=== PATIENT | female | born 1985 | race Caucasian/White ===

== ENCOUNTER 2016-03-06 21:13 | Emergency (ER) | payer BC ==
[2016-03-06] MEDS ORDERED: NS 0.9% 1000 ML* 1,000 ML IV ONE (21:31)
[2016-03-06 21:47] LABS: Hematocrit 38 % (35-47); Hemoglobin 12.8 g/dl (12.0-16.0); Mean Corpuscular HGB Conc 34 g/dl (31-36); Mean Corpuscular Hemoglobin 28 pg (27-31); Mean Corpuscular Volume 85 fL (80-97); Mean Platelet Volume 10 um3 (7.4-10.4); Red Cell Distribution Width 14 % (10.5-15); White Blood Count 13.1 10^3/ul (3.5-10.8)
[2016-03-06 22:00] LABS: ALT 12 U/L (7-52); AST 14 U/L (13-39); Albumin 3.6 g/dL (3.2-5.2); Alkaline Phosphatase 39 U/L (34-104); Anion Gap 7 mmol/L (2-11); Blood Urea Nitrogen 13 mg/dL (6-24); CO2 Carbon Dioxide 25 mmol/L (22-32); Calcium 9.4 mg/dL (8.6-10.3); Chloride 104 mmol/L (101-111); EGFR African American 143.5 (>60); EGFR Non-African American 111.6 (>60); Globulin 3.1 g/dL (2-4); Glucose 110 mg/dL (70-100); Potassium 3.9 mmol/L (3.5-5.0); Sodium 136 mmol/L (133-145); Total Protein 6.7 g/dL (6.4-8.9)
[2016-03-06 22:03] LABS: Urine Bacteria Absent (Absent); Urine Bilirubin Negative (Negative); Urine Glucose 1+(50 mg/dL) (Negative); Urine Nitrite Negative (Negative)
[2016-03-07 01:33] VITALS: BP 111/71
--- NOTE | 2016-03-07 06:55 | RAD ---
INDICATION: Early with cramping COMPARISON: None TECHNIQUE: Real-time transabdominal imaging was performed for evaluation. This is not a anatomic study due to the early age of the gestation. FINDINGS: There is a diamniotic twin gestation. It cannot be determined whether this is monochorionic or dichorionic. Twin A is the presenting fetus and is in the lower uterus. The crown-rump length corresponds to an 11 week 3 day gestation. heart rate is 176 beats for minute. Twin B is high in the uterus with a crown-rump length corresponding to an 11 week 1 day gestation. The heart rate is 170 beats for minute. There is a large complex collection anterior to the left of the gestational sac consistent with subchorionic hemorrhage. The subchorionic hemorrhage extends from the fundus and lower uterine segment. The measurement is approximately 8 x 6 x 3 cm. IMPRESSION: EARLY TWIN GESTATION AT BETWEEN 11 WEEKS 1 DAY 11 WEEKS 3 DAYS WITH CONFIRMATION OF CARDIAC ACTIVITY IN EACH TWIN. THERE IS A LARGE PERIGESTATIONAL HEMORRHAGE. SUGGEST CLOSE FOLLOW-UP.
--- NOTE | 2016-03-07 12:19 | ED ---
Trino Song Billy, scribed for Tom Hernandez MD on 03/06/16 at 2142 . GI/ HPI - HPI Summary HPI Summary: Patient is a 30 year-old female coming to [facility] presenting with intermittent bright red vaginal bleeding starting 90 minutes ago. The patient was seated, at rest. She also reports suprapubic abdominal cramping, pain severity 3/10. She is 11 weeks with twins; A1. She reports an early miscarriage 1.5 years ago as well as a history of infertility. She has been receiving fertility treatments at [facility] in [place] via IVF, and she states that her weekly ultrasounds have been normal. She denies any other significant history. - History of Current Complaint Chief Complaint: EDVaginalBleeding Time Seen by Provider: 03/06/16 21:33 Stated Complaint: 11 WKS TWINS/BLEEDING Hx Obtained From: Patient Onset/Duration: Started Minutes Ago, Still Present Timing: Intermittent Severity: Moderate Current Severity: Moderate Vaginal Bleeding Description: Bright Red Pain Intensity: 3 Location of Pain: Suprapubic Associated Signs and Symptoms: Positive: Abdominal Pain Additional Signs & Symptoms: Positive: Vaginal Bleeding - Allergy/Home Medications Allergies/Adverse Reactions: Allergies Allergy/AdvReac Type Severity Reaction Status Date / Time No Known Allergies Allergy Verified 03/06/16 21:27 Home Medications: Home Medications Levothyroxine TAB* [Synthroid TAB*] 50 mcg PO DAILY 03/06/16 [History Confirmed 03/06/16] Progesterone SUPP (NF) [Endometrin SUPP (NF)] 100 mg VAGINAL BID 03/06/16 [ History Confirmed 03/06/16] PMH/Surg Hx/FS Hx/Imm Hx Endocrine/Hematology History: Denies: Hx Diabetes Cardiovascular History: Denies: Hx Hypertension, Hx Myocardial Infarction - Immunization History Date of Tetanus Vaccine: unk Date of Influenza Vaccine: none Infectious Disease History: No Infectious Disease History: Denies: Traveled Outside the [place] in Last 30 Days - Family History Known Family History: Negative: Cardiac Disease, Hypertension, Diabetes - Social History Alcohol Use: None Substance Use Type: Reports: None Smoking Status (MU): Never Smoked Tobacco Review of Systems Negative: Fever Positive: Abdominal Pain - cramping Positive: other - vaginal bleeding All Other Systems Reviewed And Are Negative: Yes Physical Exam - Summary Physical Exam Summary: VITAL SIGNS: Reviewed. GENERAL: Patient is a well developed and nourished female who is lying comfortable in the stretcher. Patient is not in any acute respiratory distress. HEAD AND FACE: Normocephalic and atraumatic. EYES: PERRLA, EOMI x 2, No injected conjunctiva. EARS: Hearing grossly intact. Ear canals and tympanic membranes are WNL. MOUTH: Oropharynx within normal limits. NECK: Supple, trachea is midline, no adenopathy, no JVD. CHEST: Symmetric, no tenderness at palpation LUNGS: Clear to auscultation bilaterally. No wheezing or crackles. CVS: RRR,, S1 and S2 present, no murmurs or gallops appreciated. ABDOMEN: Soft, non-tender. No signs of distention. Positive bowel sounds. No rebound no guarding, and no masses palpated. No abdominal bruit or pulsations. EXTREMITIES: FROM in all major joints, no edema, no cyanosis or clubbing. NEURO: Alert and oriented x 3. No acute neurological deficits. Speech is normal. 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 External genitalia: within normal limits. No rashes, lesions or ecchymosis. Speculum exam: vaginal valladares with no lesions, masses, or rashes. Small amount of blood in the vault. Cervix normal. No CMTs. No adnexal masses. Triage Information Reviewed: Yes Vital Signs On Initial Exam: Initial Vitals Temp Pulse Resp BP Pulse Ox 98.7 F 117 16 140/83 100 03/06/16 21:16 03/06/16 21:16 03/06/16 21:16 03/06/16 21:16 03/06/16 21:16 Vital Signs Reviewed: Yes - [place] Coma Scale Coma Scale Total: 15 Diagnostics - Vital Signs Vital Signs Temp Pulse Resp BP Pulse Ox 03/06/16 21:16 98.7 F 117 16 140/83 100 - Laboratory Lab Results: Lab Results 03/06/16 Range/Units 21:35 INR (Anticoag Therapy) 0.93 (0.89-1.11) APTT 26.5 (26.0-36.3) seconds Result Diagrams: 03/06/16 21:35 03/06/16 21:35 Lab Statement: Any lab studies that have been ordered have been reviewed, and results considered in the medical decision making process. - Ultrasound No standard instances Ultrasound Interpretation Completed By: Radiologist - ULTRASOUND: Large twin intrauterine gestation. Large subchorionic hemorrhage at margins of both gestational sacs. Re-Evaluation - Re-Evaluation First Eval Re-Evaluation Time: 23:42 Comment: Discussed plan to wait for official US report as well as Rh lab results, and that final disposition will be pending these results. GIGU Course/Dx - Course Assessment/Plan: Patient is a 30 year-old female coming to [facility] presenting with intermittent bright red vaginal bleeding starting 90 minutes ago. The patient was seated, at rest. She also reports suprapubic abdominal cramping, pain severity 3/10. She is 11 weeks with twins; A1. She reports an early miscarriage 1.5 years ago as well as a history of infertility. She has been receiving fertility treatments at [facility] in [place] via IVF , and she states that her weekly ultrasounds have been normal. She denies any other significant history. Bloodwork WNL except for WBC of 13.1, bHCG is [id number]. Pelvic exam shows that she has slight amount of blood in the vaginal vault and with no significant abdominal cramping. At this time, we are waiting for the lab result of the Rh blood type. Pelvic U/S results as above. Positive large subchorionic bleed. Fetus are viable and positive HR. I discussed the case with Dr. Smith who recommends for the patient to be at bed rest and if and since there are positive heart tones, the patient should be discharged home to follow up with RESEARCH AND DEVELOPMENT CHEMIST on Tuesday in 2 days. Also, if Rh is pending. At this point, we are awaiting the Rh lab results, so the patient will be signed out to Dr. Berrios for further disposition. She is comfortable in the ED, hemodynamically stable, A&Ox3. - Diagnoses Differential Diagnoses - Female: Incomplete , , Pelvic Inflammatory Disease Provider Diagnoses: Vaginal bleeding, Threatened miscarriage - Physician Notifications Discussed Care Of Patient With: Dr. Smith (RESEARCH AND DEVELOPMENT CHEMIST) @ [phone]. Dr. Velasquez ( Imaging blood bank order control clerk) @ 2998: US findings reviewed. Discharge - Discharge Plan Condition: Stable Disposition: HOME Discharge Disposition Comment: Signed out to Dr. Berrios pending Rh lab results. Patient Education Materials: Threatened Miscarriage (ED) The documentation as recorded by the Trino byrd Billy accurately reflects the service I personally performed and the decisions made by me, Tom Hernandez MD.
--- NOTE | 2016-05-15 09:52 | ED ---
I, Jarek Wills, scribed for Faviola Berrios MD on 03/07/16 at 0123 . Progress - Progress Note Progress Note: signout pt from Dr. Hernandez. Awaiting for ABO/RH results. pt discharged home in stable condition - Results/Orders Results/Orders: Bloodtype: B positive Course/Dx - Diagnoses Provider Diagnoses: Vaginal bleeding, Threatened miscarriage The documentation as recorded by the Johann byrd Benjamin accurately reflects the service I personally performed and the decisions made by me, Faviola Berrios MD.
== END 2016-03-07 01:31 | disposition home or self-care (01) ==
LOC: ED 21:13
DX: O20.0 Threatened abortion (principal); O09.01 Supervision of pregnancy with history of infertility, first trimester; O30.001 Twin pregnancy, unspecified number of placenta and unspecified number of amniotic sacs, first trimester; Z3A.11 11 weeks gestation of pregnancy
CPT/HCPCS: 36415; 76801; 80053; 81003; 81015; 83605; 84702; 85025; 85610; 85730; 86900; 86901; 96360; 99282

== ENCOUNTER 2016-08-18 10:06 | Inpatient (IN) | payer BC, OTHER ==
[2016-08-18] MEDS ORDERED: ceFOXitin 2 GM IVPREMIX* 2 GM/50 ML BAG IVPB ONE (10:13)
[2016-08-18] MEDS ORDERED: Magnesium Sulfate OB PREMIX* 40 GM/1,000 ML BAG ONE (10:45)
[2016-08-18] MEDS ORDERED: Magnesium Sulf 4 GM/100 ML IV* 4,000 MG/100 ML BAG IVPB ONE (10:50)
[2016-08-18 11:02] LABS: Hematocrit 39 % (35-47); Hemoglobin 12.5 g/dl (12.0-16.0); Mean Corpuscular HGB Conc 32 g/dl (31-36); Mean Corpuscular Hemoglobin 26 pg (27-31); Mean Corpuscular Volume 80 fL (80-97); Mean Platelet Volume 11 um3 (7.4-10.4); Red Blood Count 4.85 10^6/ul (4.0-5.4); Red Cell Distribution Width 15 % (10.5-15); White Blood Count 12.6 10^3/ul (3.5-10.8)
[2016-08-18 11:04] LABS: Add Diff/Slide Review? Slide Review Added; Comments Flag Yes
[2016-08-18 11:16] LABS: Albumin 3.1 g/dL (3.2-5.2); BUN/Creatinine Ratio 14.7 (8-20); Calcium 8.7 mg/dL (8.6-10.3); EGFR African American 80.3 (>60); EGFR Non-African American 62.4 (>60); Globulin 3.3 g/dL (2-4); Potassium 4.2 mmol/L (3.5-5.0); Total Bilirubin 0.6 mg/dL (0.2-1.0); Total Protein 6.4 g/dL (6.4-8.9)
[2016-08-18] MEDS ORDERED: Sodium Citrate/Citric Acid* 15 ML UDC ONE (11:21)
[2016-08-18] MEDS ORDERED: Morphine PF AMP (0.5MG/ML)* 5 MG/10 ML AMP ONE (11:29)
[2016-08-18] MEDS ORDERED: Phenylephrine IV* 40 MCG/ML 10 ML SYRINGE ONE (11:30)
[2016-08-18 11:37] LABS: Platelet Morphology Large
[2016-08-18 11:42] LABS: Schistocytes ABSENT
[2016-08-18 12:02] LABS: Fibrinogen 500 mg/dL (110.8-404.3)
[2016-08-18] MEDS ORDERED: OXYTOCIN* 10 UNITS/ML 1 ML VIAL ONE ×2 (12:54→12:59)
[2016-08-18] MEDS ORDERED: EPHEDrine (Pressors)* 50 MG/ML VIAL ONE (12:59)
[2016-08-18] MEDS ORDERED: fentaNYL* 50 MCG/ML 2 ML VIAL (100 MCG VIAL) IV PRN (13:42)
[2016-08-18] MEDS ORDERED: DiMENhydriNATE IV* 50 MG/ML VIAL IV PUSH PRN (13:42)
[2016-08-18] MEDS ORDERED: Ketorolac INJ* 30 MG/ML 1 ML VIAL IV PRN (13:42)
[2016-08-18] MEDS ORDERED: Ondansetron INJ* 2 MG/ML VIAL ONE (13:44)
[2016-08-18] MEDS ORDERED: Naloxone* 0.4 MG/ML 1 ML VIAL IV PRN (13:47)
[2016-08-18] MEDS ORDERED: Naloxone* 2 MG in NS 0.9% 250 ML* 250 ML IV PRN (13:47)
[2016-08-18] MEDS ORDERED: Ondansetron INJ* 2 MG/ML VIAL IV PRN (13:47)
[2016-08-18] MEDS ORDERED: diPHENhydraMINE IV* 50 MG/ML 1 ml VIAL (BENADRYL) IV PRN (13:47)
[2016-08-18] MEDS ORDERED: Dibucaine 1% 28.35 GM TUBE PR PRN (13:50)
[2016-08-18] MEDS ORDERED: Glycerin ADULT SUPP PR PRN (13:50)
[2016-08-18] MEDS ORDERED: Measles, Mumps,Rubella VACC* 0.5 ML/VIAL SUBCUT ONE (13:50)
[2016-08-18] MEDS ORDERED: Witch Hazel PAD* JAR TOPICAL PRN (13:50)
[2016-08-18] MEDS ORDERED: Acetaminophen TAB* 325 MG PO PRN (13:50)
[2016-08-18] MEDS ORDERED: Oxytocin in LR* 20 UNITS/1,000 ML BAG IVPB SCH (14:00)
[2016-08-18] MEDS: Ketorolac INJ* 30 MG/ML 1 ML VIAL IV PRN ×2 (14:19→20:27)
[2016-08-18] MEDS: oxyCODONE/Acetamin 5/325 MG* TAB PO PRN (15:59)
[2016-08-18] MEDS: Simethicone CHEW TAB* 80 MG PO SCH ×2 (17:36→23:24)
[2016-08-18 20:27] LABS: Hematocrit 35 % (35-47); Hemoglobin 11.3 g/dl (12.0-16.0); Mean Corpuscular HGB Conc 32 g/dl (31-36); Mean Corpuscular Hemoglobin 26 pg (27-31); Mean Corpuscular Volume 81 fL (80-97); Mean Platelet Volume 12 um3 (7.4-10.4); Red Blood Count 4.38 10^6/ul (4.0-5.4); Red Cell Distribution Width 15 % (10.5-15); White Blood Count 18.6 10^3/ul (3.5-10.8)
[2016-08-18 20:28] LABS: Comments Flag Yes
[2016-08-18] MEDS: Docusate CAP* 100 MG PO SCH ×2 (20:28→23:24)
[2016-08-18] MEDS: Magnesium Sulfate OB PREMIX* 40 GM/1,000 ML BAG IVPB SCH (20:30)
[2016-08-19] MEDS: Ketorolac INJ* 30 MG/ML 1 ML VIAL IV PRN (02:20)
[2016-08-19] MEDS: Magnesium Sulfate OB PREMIX* 40 GM/1,000 ML BAG IVPB SCH (05:21)
[2016-08-19] MEDS: Levothyroxine TAB* 25 MCG TAB PO SCH (06:17)
[2016-08-19 07:51] LABS: Hematocrit 30 % (35-47); Hemoglobin 9.6 g/dl (12.0-16.0); Mean Corpuscular HGB Conc 32 g/dl (31-36); Mean Corpuscular Hemoglobin 26 pg (27-31); Mean Corpuscular Volume 80 fL (80-97); Mean Platelet Volume 12 um3 (7.4-10.4); Red Blood Count 3.69 10^6/ul (4.0-5.4); Red Cell Distribution Width 15 % (10.5-15); White Blood Count 17.8 10^3/ul (3.5-10.8)
[2016-08-19 07:53] LABS: Comments Flag Yes
[2016-08-19 07:59] LABS: Albumin 2.3 g/dL (3.2-5.2); Direct Bilirubin 0.1 mg/dL (0.03-0.18); Globulin 2.6 g/dL (2-4); Indirect Bilirubin 0.2 mg/dL (0.3-1.0); Total Bilirubin 0.3 mg/dL (0.2-1.0); Total Protein 4.9 g/dL (6.4-8.9)
[2016-08-19 09:49] LABS: Magnesium 7.9 mg/dL (1.9-2.7)
[2016-08-19] MEDS: Simethicone CHEW TAB* 80 MG PO SCH ×4 (10:29→20:10)
[2016-08-19] MEDS: oxyCODONE/Acetamin 5/325 MG* TAB PO PRN ×4 (10:31→22:36)
[2016-08-19] MEDS: Ferrous Gluconate TAB* 324 MG TAB PO SCH ×2 (10:32→21:34)
[2016-08-19] MEDS: Docusate CAP* 100 MG PO SCH ×3 (10:32→20:09)
--- NOTE | 2016-08-19 17:22 | OP ---
DATE OF OPERATION: 08/18/16 - ROOM #[id number] DATE OF : 81 SURGEON: January Khan MD. FINANCIAL LEGAL ASSISTANT: Jason Duarte MD SECOND FINANCIAL LEGAL ASSISTANT: Tasha Pereyra CNM. Student, Libby De La Paz. ANESTHESIOLOGIST: Dr. Griffin. ANESTHESIA: Spinal anesthesia. PRE-OP DIAGNOSIS: Severe preeclampsia, 34 and 5/7 weeks, twin gestation, breech twin A, breech twin B. POST-OP DIAGNOSIS: Severe preeclampsia, 34 and 5/7 weeks, twin gestation, breech twin A, breech twin B, delivered. PROCEDURE PERFORMED: Primary low transverse section. ESTIMATED BLOOD LOSS: 600 cc. URINE OUTPUT: 120 cc of concentrated yellow urine. FLUIDS: 2400 cc of crystalloid. FINDINGS: Revealed twin A male , left sacrum, anterior, incomplete breech. No nuchal cord. No meconium. Three vessel cord. Fused placenta with twin B. Twin B was footling breech, female infant. The boy was 5 pounds. The girl twin B was 4 pounds 1 ounce. Apgars were 8 at 1 minute and 9 at 5 minutes. Both had the same Apgars. No nuchal cord and no meconium. Three- vessel cord. Placenta manually extracted intact, three-vessel cord x2. Uterine cavity explored without any evidence of defects. Normal-appearing fallopian tube on the right and left without adhesions. There was evidence of hemosiderin deposits on the IP ligament anteriorly and also hemosiderin deposits consistent with old endometriosis both on the right and left ovary. COMPLICATIONS: None apparent. DISPOSITION: Stable to recovery room. DESCRIPTION OF PROCEDURE: The patient was placed in dorsal lithotomy position after undergoing spinal anesthesia. Anesthesia was tested to appropriate level. The patient was identified with universal protocol for correct procedure , patient, and position. An incision was made after universal protocol with scalpel. This was carried down through to the fascia. Fascia was scored in the midline and extended laterally and superiorly using curved Castellano scissors. The fascia was superiorly using blunt and sharp dissection and also inferiorly. The peritoneum was then entered bluntly and the peritoneal incision was extended bluntly. Bladder blade was inserted. The lower uterine segment was identified and Allis was used to tent up on the lower uterine segment and incision was made in the lower uterine segment and this incision was extended laterally and superiorly with bandage scissors. Copious clear fluid was noted. was found to be incomplete breech, delivered after reduction, right leg was delivered wesley breech, anterior posterior shoulder delivered, head delivered spontaneously. Cord was milked and then cut and clamped and the was handed off to awaiting binder and box builder. The second baby was noted to be footling breech. The right foot was grasped and the baby was delivered wesley breech, anterior posterior shoulder delivered, head delivered spontaneously. Cord was then milked, and then clamped and then cut and handed off to awaiting binder and box builder. Appropriate cord blood was obtained from both twin A and twin B. The placentas were then extracted and noted to be fused, but intact and without evidence of abnormalities. The uterine cavity was explored and noted to be free of any membranes or placental tissue. The hemosiderin deposits were as noted on the left IP ligament anteriorly and left and right ovary. Interestingly both fallopian tubes were without scarring or adhesions. The hysterotomy site was reapproximated in two layers. First layer running 0 Vicryl locked and the second layer running imbricated 0 Vicryl. The uterus was returned intraabdominally. Colic gutter was lavaged. Hemostasis was documented at the hysterotomy site. The peritoneum was then reapproximated using 3-0 Vicryl in a running fashion. Subfascial area was visualized and noted to be hemostatic and the fascia itself was reapproximated using 0 Vicryl x2 in a running fashion. Subcu was lavaged. Hemostasis was assured with Bovie coagulation and the subcutaneous layer was reapproximated using 3-0 Polysorb x3 interrupted. Skin was then reapproximated using 4-0 Monocryl in subcuticular fashion. Mastisol and Steri's were applied. Bandage dressing was used. All sponge, instrument, and blade counts were correct throughout the case. The patient tolerated the procedure well, and went to recovery room in stable condition with magnesium sulfate on board 2 g an hour. [id number]/[facility] #: [id number] [facility]
[2016-08-19] MEDS: Ibuprofen TAB* 600 MG PO PRN (20:09)
[2016-08-20] MEDS: Ibuprofen TAB* 600 MG PO PRN ×4 (02:21→20:00)
[2016-08-20] MEDS: oxyCODONE/Acetamin 5/325 MG* TAB PO PRN ×5 (02:23→22:07)
[2016-08-20 06:37] LABS: Hematocrit 28 % (35-47); Hemoglobin 9.2 g/dl (12.0-16.0); Mean Corpuscular HGB Conc 32 g/dl (31-36); Mean Corpuscular Hemoglobin 26 pg (27-31); Mean Corpuscular Volume 80 fL (80-97); Mean Platelet Volume 11 um3 (7.4-10.4); Red Blood Count 3.54 10^6/ul (4.0-5.4); Red Cell Distribution Width 15 % (10.5-15); White Blood Count 15.5 10^3/ul (3.5-10.8)
[2016-08-20 06:38] LABS: Comments Flag Yes
[2016-08-20 07:03] LABS: ALT 24 U/L (7-52); AST 42 U/L (13-39); Albumin 2.1 g/dL (3.2-5.2); Alkaline Phosphatase 133 U/L (34-104); BUN/Creatinine Ratio 16.1 (8-20); Blood Urea Nitrogen 14 mg/dL (6-24); CO2 Carbon Dioxide 26 mmol/L (22-32); Chloride 106 mmol/L (101-111); EGFR African American 96.4 (>60); Glucose 90 mg/dL (70-100); Potassium 4.6 mmol/L (3.5-5.0); Sodium 132 mmol/L (133-145); Total Protein 4.1 g/dL (6.4-8.9)
[2016-08-20 07:13] LABS: Calcium 6.3 mg/dL (8.6-10.3)
[2016-08-20] MEDS: Levothyroxine TAB* 25 MCG TAB PO SCH (07:48)
[2016-08-20] MEDS: Docusate CAP* 100 MG PO SCH ×3 (07:49→20:01)
[2016-08-20] MEDS: Simethicone CHEW TAB* 80 MG PO SCH ×4 (07:49→20:16)
[2016-08-20] MEDS: Ferrous Gluconate TAB* 324 MG TAB PO SCH ×2 (12:19→20:01)
[2016-08-20] MEDS ORDERED: Lidocaine 1% MPF* 2 ML VIAL ONE (18:57)
[2016-08-21] MEDS: Ibuprofen TAB* 600 MG PO PRN ×3 (04:31→18:05)
[2016-08-21] MEDS: Levothyroxine TAB* 25 MCG TAB PO SCH (06:29)
[2016-08-21] MEDS: oxyCODONE/Acetamin 5/325 MG* TAB PO PRN ×3 (06:29→15:30)
[2016-08-21 08:11] LABS: Hematocrit 30 % (35-47); Hemoglobin 9.8 g/dl (12.0-16.0); Mean Corpuscular HGB Conc 32 g/dl (31-36); Mean Corpuscular Hemoglobin 26 pg (27-31); Mean Corpuscular Volume 80 fL (80-97); Mean Platelet Volume 10 um3 (7.4-10.4); Red Blood Count 3.78 10^6/ul (4.0-5.4); Red Cell Distribution Width 16 % (10.5-15); White Blood Count 13.7 10^3/ul (3.5-10.8)
[2016-08-21 08:27] LABS: Albumin 2.2 g/dL (3.2-5.2); BUN/Creatinine Ratio 14.9 (8-20); Calcium 7.9 mg/dL (8.6-10.3); EGFR African American 96.4 (>60); Globulin 2.6 g/dL (2-4); Potassium 4.9 mmol/L (3.5-5.0); Total Bilirubin 0.3 mg/dL (0.2-1.0); Total Protein 4.8 g/dL (6.4-8.9)
[2016-08-21] MEDS: Ferrous Gluconate TAB* 324 MG TAB PO SCH (10:09)
[2016-08-21] MEDS: Docusate CAP* 100 MG PO SCH ×2 (10:10→14:16)
[2016-08-21] MEDS: Simethicone CHEW TAB* 80 MG PO SCH ×3 (10:10→18:05)
[2016-08-21 15:00] VITALS: BP 146/85
== END 2016-08-21 18:47 | disposition home or self-care (01) | DRG 540 ==
LOC: MCHOBOUT 10:06 → MCHOB 10:28
PROVIDERS: ADMIT Obstetrics & Gynecology; ATTEND Obstetrics & Gynecology
PROC: 4A1HX4Z Monitoring of Products of Conception, Cardiac Electrical Activity, External Approach (ICD-10-PCS; 2016-08-18)
PROC: 10D00Z1 Extraction of Products of Conception, Low, Open Approach (ICD-10-PCS; principal; 2016-08-18 12:06)
DX: O14.14 Severe pre-eclampsia complicating childbirth (principal); O30.043 Twin pregnancy, dichorionic/diamniotic, third trimester; Z3A.34 34 weeks gestation of pregnancy; Z37.2 Twins, both liveborn; O32.8XX1 Maternal care for other malpresentation of fetus, fetus 1; O32.8XX2 Maternal care for other malpresentation of fetus, fetus 2; O99.284 Endocrine, nutritional and metabolic diseases complicating childbirth; E03.9 Hypothyroidism, unspecified; O99.824 Streptococcus B carrier state complicating childbirth; O75.89 Other specified complications of labor and delivery; N80.1 Endometriosis of ovary; N80.2 Endometriosis of fallopian tube; O09.813 Supervision of pregnancy resulting from assisted reproductive technology, third trimester
CPT/HCPCS: 36415; 80053; 80076; 82330; 83735; 85025; 85027; 85049; 85362; 85384; 85610; 85730; 86850; 86900; 86901; 90707; A9270-GY; J0694; J1885; J2405; J2590